=== PATIENT | male | born 1970 | race American Indian/Alaskan Native ===

== ENCOUNTER 2018-12-26 13:50 | Outpatient (CLI) | payer MEDICARE | END 2018-12-26 13:51 | disposition home or self-care (01) | LOC: RAD 13:50 | DX: G35 Multiple sclerosis (principal) ==

== ENCOUNTER 2018-12-29 08:36 | Outpatient (CLI) | payer MEDICARE | END 2018-12-29 08:37 | disposition home or self-care (01) | LOC: RAD 08:36 ==